=== PATIENT | female | born 1990 | race Caucasian/White ===

== ENCOUNTER 2018-08-31 12:30 | Observation (INO) | payer BC, OTHER ==
[2018-08-31 17:39] VITALS: BP_SYST 111
== END 2018-08-31 18:13 | disposition home or self-care (01) ==
LOC: SPU 12:30
PROVIDERS: ADMIT Specialist; ATTEND Specialist
DX: O26.893 Other specified pregnancy related conditions, third trimester (principal); R10.9 Unspecified abdominal pain; Z3A.38 38 weeks gestation of pregnancy
CPT/HCPCS: 76805; 81002; G0378